=== PATIENT | male | born 1990 | race Caucasian/White ===

== ENCOUNTER 2017-09-29 17:07 | Emergency (ER) ==
[2017-09-29 17:11] VITALS: BP 138/85; TEMP 96.9; BMI 28.8
[2017-09-29] MEDS ORDERED: TORADOL IM STA (17:27)
--- NOTE | 2017-09-29 17:53 | CT ---
EXAM: CT scan abdomen pelvis without contrast HISTORY: Flank pain COMPARISON: CT scan abdomen pelvis 06/08/2013 FINDINGS: Contiguous axial images obtained from lung bases to the symphysis pubis without contrast u tilizing 3-mm collimation. Sagittal and coronal reconstructions were imaged and reviewed.. Visualiz ed lung bases are clear. There is a stable fat containing lesion posteriorly within the right lobe of liver. Gallbladder is fluid filled without cholelithiasis. The pancreas spleen and adrenal glands have normal unenhanced CT appearance. The abdominal aorta is normal in course caliber. There is mil d fullness right pelvocaliceal system and ureter secondary to a 2 mm calculus at the L4-L5 level. Th ere is no evidence of nephrolithiasis. There is a tiny umbilical hernia containing only fat. There is no free fluid or inflammatory changes. There is normal appendix. IMPRESSION: Mild fullness right pelvocaliceal system and ureter secondary to a 2 mm calculus at the L4-L5 level. No evidence of nephrolithiasis. Stable small fat containing lesion posteriorly within the right lobe of liver
--- NOTE | 2017-09-29 18:13 | ED.PDOC ---
General ED Provider: Dr. FABIOLA CARLSON Chief Complaint: Kidney Stone Stated Complaint: kidney stone right flank pain Time Seen by Physician: 17:10 Mode of Arrival: Walk-In Information Source: Patient Exam Limitations: No limitations Nursing and Triage Documentation Reviewed and Agree: Yes Does patient meet sepsis criteria?: No System Inflammatory Response Syndrome: Not Applicable Sepsis Protocol: For patient's 13 years and over: Temp is 96.8 and below OR 101 and greater Pulse >90 BPM Resp >20/minute Acutely Altered Mental Status Are patient's symptoms suggestive of a new infection, such as: -Pneumonia -Skin, Soft Tissue -Endocarditis -UTI -Bone, Joint Infection -Implantable Device -Acute Abdominal Infection -Wound Infection -Meningitis -Blood Stream Catheter Infection -Unknown Complaint Exam - Complaint/Exam Patient Complains of: Reports: Dysuria Onset/Duration: today 2 hr ago Symptoms Are: Still present Timing: Intermittent Initial Severity: Severe Current Severity: Mild Location of Pain: Reports: Right, Flank Character: Reports: Cramping Aggravating: Reports: None Alleviating: Reports: None Associated Signs and Symptoms: Reports: Dysuria. Denies: Diaphoresis, Back pain , Fever, Hematuria, Constipation, Blood in stool, Rectal pain, Appetite change, Nausea, Vomiting, Penile swelling, Penile discharge, Decreased urine output, Increased urine frequency, Increased thirst, Decreased activity, Lethargy, Scrotal pain, Scrotal swelling, Abdominal Pain Testicular Torsion Risk Factors: Reports: None Surgical Obstruction Risk Factors: Reports: None Related Surgical History: Reports: None Abdominal Findings: Present: None Differential Diagnoses: UTI Review of Systems - Review Of Systems Constitutional: Reports: No symptoms Eyes: Reports: No symptoms Ears, Nose, Mouth, Throat: Reports: No symptoms Respiratory: Reports: No symptoms Cardiac: Reports: No symptoms GI: Reports: No symptoms : Reports: Dysuria, Flank pain, Hematuria Musculoskeletal: Reports: No symptoms Skin: Reports: No symptoms Neurological: Reports: No symptoms Endocrine: Reports: No symptoms Hematologic/Lymphatic: Reports: No symptoms All Other Systems: Reviewed and Negative Past Medical History - Past Medical History Previously Healthy: Yes Endocrine: Reports: None Cardiovascular: Reports: None Respiratory: Reports: None Hematological: Reports: None Gastrointestinal: Reports: None Genitourinary: Reports: None Neuro/Psych: Reports: None Musculoskeletal: Reports: None Cancer: Reports: None - Surgical History General Surgical History: Reports: None - Family History Family History: Reports: None - Social History Smoking Status: Former smoker Hx Substance Use: No Alcohol Screening: Occasionally Physical Exam - Physical Exam Appearance: Well-appearing, No pain distress, Well-nourished Eyes: DASHA, EOMI, Conjunctiva clear ENT: Ears normal, Nose normal, Oropharynx normal Respiratory: Airway patent, Breath sounds clear, Breath sounds equal, Respirations nonlabored Cardiovascular: RRR, Pulses normal, No rub, No murmur GI/: Soft, Nontender, No masses, Bowel sounds normal, No Organomegaly Musculoskeletal: Normal strength, ROM intact, No edema, No calf tenderness Skin: Warm, Dry, Normal color Neurological: Sensation intact, Motor intact, Reflexes intact, Cranial nerves intact, Alert, Oriented Psychiatric: Affect appropriate, Mood appropriate Interpretation - Radiology Interpretation Radiology Interpretation By: Radiologist Radiology Results: Positive (2mm stone) Critical Care Note - Critical Care Note Total Time (mins): 0 Course - Course Hematology/Chemistry: 09/29/17 17:45 Orders, Labs, Meds: Lab Review 09/29/17 09/29/17 17:30 17:45 WBC 7.59 RBC 5.06 Hgb 15.1 Hct 42.8 MCV 84.6 MCH 29.8 MCHC 35.3 RDW Coeff of Ketty 12.0 Plt Count 145 Immature Gran % (Auto) 0.5 Neut % (Auto) 72.2 Lymph % (Auto) 20.3 [place] % (Auto) 5.9 Eos % (Auto) 0.8 Baso % (Auto) 0.3 Immature Gran # (Auto) 0.0 Neut # (Auto) 5.5 Lymph # (Auto) 1.5 [place] # (Auto) 0.5 Eos # (Auto) 0.1 Baso # (Auto) 0.0 Urine Color Yellow Urine Clarity Clear Urine pH 5.5 Ur Specific [place] >=1.030 Urine Protein 2+ Urine Glucose (UA) Negative Urine Ketones 1+ Urine Blood 3+ Urine Nitrite Negative Urine Bilirubin Negative Urine Urobilinogen 1.0 Ur Leukocyte Esterase Negative Urine Microscopic RBC Tntc Urine Microscopic WBC 2-5 Ur Squamous Epith Cells 2-5 Orders Category Date Time Status CBC W/ AUTO DIFF Stat LAB 09/29/17 17:25 Ordered COMPREHENSIVE METABOLIC PANEL Stat LAB 09/29/17 17:25 Ordered URINALYSIS C & S IF INDICATED Stat LAB 09/29/17 17:25 Uncollected Ketorolac Tromethamine [Toradol] MEDS 09/29/17 17:27 Stat 60 mg IM ONCE STA CT ABD/PEL WO RENAL STONE PROT Stat RADS 09/29/17 17:25 Ordered Medications Discontinued Medications Generic Name Dose Route Start Last Admin Trade Name Jose PRN Reason Stop Dose Admin Ketorolac Tromethamine 60 mg 09/29/17 17:27 09/29/17 17:49 Toradol IM 09/29/17 17:28 60 mg ONCE STA Administration Vital Signs: Temp Pulse Resp BP Pulse Ox 09/29/17 17:07 96.9 F L 71 18 138/85 99 Departure - Departure Time of Disposition: 18:12 Disposition: HOME SELF-CARE Discharge Problem: Kidney stone Instructions: Kidney Stones (ED) Condition: Good Pt referred to PMD for follow-up: Yes IPMP verified?: No Additional Instructions: Please call your Family Physician as soon as possible to schedule a follow-up appointment. Prescriptions: Hydrocodone/Acetaminophen [[place]ol[place] 10-325 Tablet] 1 each PO Q8HR #7 tablet Allergies/Adverse Reactions: Allergies Iodinated Contrast- Oral and IV Dye Adverse Reaction (Verified 09/29/17 17:12) Home Medications: Ambulatory Orders 1 [No Reported Medications] 0 mg PO DAILY 09/30/12 Hydrocodone/Acetaminophen [[place] 10-325 Tablet] 1 each PO Q8HR #7 tablet
== END 2017-09-29 18:24 | disposition home or self-care (01) ==
LOC: ED 17:07
DX: N20.0 Calculus of kidney (principal)
CPT/HCPCS: 36415; 74176; 80053; 81001; 85025; 96372; 99283